=== PATIENT | female | born 1990 | race Hispanic/Latino ===

== ENCOUNTER 2021-08-08 10:58 | Emergency (ER) | payer OTHER, SELFPAY ==
--- NOTE | ~2021-08-08 | XR_ITS ---
XR pelvis 1-2V DATE: 08/08/2021 12:57 INDICATION: Fall. Pelvic pain. TECHNIQUE: AP view COMPARISON: None FINDINGS: The pubic symphysis and sacroiliac joints are intact. No pelvic fracture or bone destructio n. No fracture or dislocation of either hip is detected. IMPRESSION: Negative pelvis Reviewed, dictated and finalized at location B. 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
--- NOTE | ~2021-08-08 | XR_ITS ---
XR femur RT min 2V DATE: 08/08/2021 12:57 INDICATION: Right leg pain after fall TECHNIQUE: AP and lateral views COMPARISON: None FINDINGS: No fracture or dislocation, periosteal reaction or bone destruction is detected. Normal ali gnment at the right hip and knee joints. IMPRESSION: Negative right femur Reviewed, dictated and finalized at location B. 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
[2021-08-08 11:15] VITALS: BP 91/59; PULSE 77; RESP 18; TEMP 36.4; O2SAT 100
--- NOTE | 2021-08-08 14:14 | ED.LOWEXIN ---
HPI - Extremity Injury (Lower) General Chief Complaint: Extremity Injury, Lower Stated Complaint: fall, leg injury Time Seen by Provider: 08/08/21 12:24 Source: patient Mode of arrival: ambulatory Limitations: no limitations History of Present Illness HPI Narrative: 31-year-old with no major medical problems is here with complaints of right thigh and pelvic pain. Patient states that she was at work and slid and fell. She denies head and neck injuries. MD complaint: hip injury and thigh injury Injury: Left: hip and Right: thigh Type of Injury: other (Fall) Place: work Severity: moderate Relieving factors: nothing Exacerbating factors: nothing Context: fall Related Data Allergies Allergy/AdvReac Type Severity Reaction Status Date / Time No Known Allergies Allergy Unverified 05/31/18 03:57 Review of Systems Review of Systems: All systems reviewed & are unremarkable except as noted in HPI and below Constitutional: Constitutional: Reports no additional constitutional complaints Eyes: Eyes: Reports no additional eye complaints ENT: Reports system reviewed and no additional complaints, except as documented Cardiovascular: Cardiovascular: Reports no additional cardiovascular complaints Respiratory: Respiratory: Reports no additional respiratory complaints Gastrointestinal: Gastrointestinal: Reports no additional gastrointestinal complaints Musculoskeletal: Musculoskeletal: Reports as per HPI Neurologic: Reports system reviewed and no additional complaints, except as documented PMFSH Social History Social History Smoking status: Never smoker Alcohol intake: never Exam Narrative: GENERAL: Well-appearing, well-nourished, and in no acute distress. HEAD: Normocephalic, atraumatic. EYES: PERRLA and EOMI. NECK: Supple. CHEST: Clear to auscultation. No respiratory distress. HEART: Regular rate and rhythm. No murmur heard. Normal peripheral pulses. ABDOMEN: Soft, nontender, nondistended, normal active bowel sounds. EXTREMITIES: Normal range of motion. No edema.Abrasions noted on the right thigh. SKIN: Warm, dry, no rash. NEURO: No focal deficits. Alert and oriented x3. PSYCH: Normal mood and affect. Course Course Emergency Course: Informed patient about her x-ray findings advised her to take pain medication as prescribed Vital Signs Vital signs: Vital Signs Temperature 36.4 C 08/08/21 11:15 Pulse Rate 77 08/08/21 11:15 Respiratory Rate 18 08/08/21 11:15 Blood Pressure 91/59 L 08/08/21 11:15 Pulse Oximetry 100 08/08/21 11:15 Temperature 36.4 C 08/08/21 11:15 Pulse Rate 77 08/08/21 11:15 Respiratory Rate 18 08/08/21 11:15 Blood Pressure 91/59 L 08/08/21 11:15 Pulse Oximetry 100 08/08/21 11:15 MDM - Extremity Injury (Lower) Imaging Data My impression: no acute findings . Radiologist's impression: ITS Impressions Pelvis X-Ray 08/08/21 12:58 IMPRESSION: Negative pelvis Femur X-Ray 08/08/21 12:59 IMPRESSION: Negative right femur Discharge Plan Discharge Clinical Impression: Contusion of right thigh Qualifiers: Encounter type: initial encounter Qualified Code(s): S70.11XA - Contusion of right thigh, initial encounter Strain of left hip Qualifiers: Encounter type: initial encounter Qualified Code(s): S76.012A - Strain of muscle, fascia and tendon of left hip, initial encounter Abrasion hip/leg Qualifiers: Encounter type: initial encounter Laterality: right Qualified Code(s): S80.811A - Abrasion, right lower leg, initial encounter Patient Disposition: Home, Self-Care Condition: Stable Instructions: Antibiotic Form, Contusion in Adults (ED) Additional Instructions: Take pain medications as prescribed. Prescriptions: New ibuprofen 600 mg tablet 600 mg PO TID PRN (Reason: pain) Qty: 20 RF: 0 Follow-up/Referrals: UNKNOWN,DOCTOR [Primary Care Provider] -
== END 2021-08-08 15:05 | disposition home or self-care (01) ==
PROVIDERS: Emergency Provider Family Medicine
DX: S70.11XA Contusion of right thigh, initial encounter (principal); S70.311A Abrasion, right thigh, initial encounter; S76.011A Strain of muscle, fascia and tendon of right hip, initial encounter; W01.0XXA Fall on same level from slipping, tripping and stumbling without subsequent striking against object, initial encounter
CPT/HCPCS: 72170; 73552; 99284